=== PATIENT | female | born 1940 | race Two or more races ===

== ENCOUNTER 2024-11-02 06:55 | Emergency (ER) | payer MEDICARE, SELFPAY ==
[2024-11-02] VITALS (60 sets, daily range): BP systolic 81–150; BP diastolic 13–105; PULSE 36–87; RESP 13–29; TEMP 36; O2SAT 95–98
--- NOTE | 2024-11-02 07:00 | RT.EKG_ITS ---
APPROVED REPORT Exam: Resting ECG Reason for Exam: Weakness Patient Location: E HR:73 bpm ECG Measurements Heart Rate 73 AXIS FL 328 P 27 QRSd 100 QRS 28 QT 443 T 6 QTc 488 Conclusion Sinus rhythm...normal P axis, V-rate 60- 99 Supraventricular bigeminy...bigeminy string>4 w/ SV complexes Prolonged FL interval...FL >220, V-rate 50- 90 Low voltage, precordial leads...precordial leads <1.0mV Physician: lateral depressions without stemi
--- NOTE | 2024-11-02 07:00 | DI.RAD_ITS ---
Exam(s) XR PORTABLE CHEST AP EXAM: XR PORTABLE CHEST AP CLINICAL HISTORY: SOB TECHNIQUE: 2D digital imaging was performed. COMPARISON: No exams were available for comparison FINDINGS: LUNGS: The lung apices are partially obscured by the patient's chin. There is a small to moderate left pleural effusion. There are increased densities at the right lung base with a somewhat rounded configuration. This could represent an area atelectasis or consolidation. No definite over pulmonary edema. HEART: Markedly enlarged. There is pulmonary prominence. AORTA: Tortuous and calcified. Calcifications also noted in the right subclavian artery. There is a left subclavian artery stent. BONES: Unremarkable for age. Soft tissues: Unremarkable. IMPRESSION: Left pleural effusion. Right lower lobe consolidation versus atelectasis. The preliminary [facility] report was reviewed. DATA REPOSITORY: RADIATION DOSE DELIVERED:
--- NOTE | 2024-11-02 07:24 | W.ED.GENAD ---
Discharge Plan Disposition Patient Disposition: Transfer-Acute Inpatient Care Specific Acute Inpt Facility: Other Condition: Critical Discharge Details Clinical Impression: Severe sepsis, Pneumonia, Renal failure, Cellulitis of right foot, Non-ST elevation ME (NSTEMI) [facility] Provider: Srinivas Orellana Home Meds and New Rx's Prescriptions: No Action levothyroxine 125 mcg capsule 125 mcg PO DAILY amlodipine 10 mg tablet 10 mg PO DAILY hydralazine 10 mg tablet 20 mg PO BID omeprazole 20 mg capsule,delayed release(DR/EC) 20 mg PO DAILY sevelamer HCl [Renagel] 800 mg tablet 800 mg PO TID Rx Instructions: must administer with a meal/food magnesium 200 mg tablet 400 mg PO DAILY bumetanide 1 mg tablet 1 mg PO DAILY Discharge Data Discharge Date/Time-TO BE ENTERED AT DEPARTURE: 11/02/24 12:46 HPI General Date/Time Provider Initiated Documentation: 11/02/24 07:03. HPI Narrative: This is an 84-year-old female with past medical history of thyroid dysfunction, previous blood clots in the past, COPD, chronically on 3 L of oxygen, dialysis who no longer produces urine, hypertension, who just got here within the past 24 hours after a 4 to 5-day trip in the car coming up from [place]. She is a Sunday dialysis patient, her family is moving up here permanently to be closer to their daughter who is in college at the local [employer]. They left on Sunday, and that was the last day the patient had dialysis. Currently it is Sunday. On Sunday they noticed significant swelling in her right lower extremity, per family they went to a clinic where an ultrasound was performed and no blood clots were found. The leg was subsequently wrapped and during the trip developed continued swelling and blisters, blisters have now desquamated and have resulted in significant weeping and redness and pain. In addition to that family has not been able to get dialysis for the patient since her last episode on Sunday. Patient denies any significant complaints aside for generalized weakness. She denies chest pain or shortness of breath. She denies vomiting or diarrhea. She denies headache, fever or chills. She states that her right leg is tender, but the swelling has been going down. She states that she is a full code, and would like CPR and intubation if needed. She denies any other complaints at this time. She is not on blood thinners. She is not on current antibiotics. Related Data Home Medications ?Medication ?Instructions ?Recorded ?Confirmed amlodipine 10 mg tablet 10 mg PO DAILY 11/02/24 11/02/24 bumetanide 1 mg tablet 1 mg PO DAILY 11/02/24 11/02/24 hydralazine 10 mg tablet 20 mg PO BID 11/02/24 11/02/24 levothyroxine 125 mcg capsule 125 mcg PO DAILY 11/02/24 11/02/24 magnesium 200 mg tablet 400 mg PO DAILY 11/02/24 11/02/24 omeprazole 20 mg capsule,delayed 20 mg PO DAILY 11/02/24 11/02/24 release sevelamer HCl 800 mg tablet 800 mg PO TID 11/02/24 11/02/24 (Renagel) Allergies Allergy/AdvReac Type Severity Reaction Status Date / Time Sulfa (Sulfonamide Allergy Mild Nausea Verified 11/02/24 08:32 Antibiotics) General Stated Complaint: Dizzy/Sync MADDY: 3 Exam Narrative Exam Narrative: 1.Const: Well-nourished, Well-developed, appearing stated age 2.Eyes: PERRL, no conjunctival injection, and symmetrical lids. 3.ENT: Atraumatic external nose and ears. Moist MM. Neck: Symmetric, trachea midline, No thyromegaly. 4.CVS: +S1/S2, Peripheral pulses 2+ and equal in all extremities. Brisk capillary refill in all extremities. 5.RESP: Unlabored respiratory effort. Rhonchorous breath sounds, worse on the right than the left. 6.GI: Soft, Nontender/Nondistended, No hepatosplenomegaly. No guarding or rebound. 7.MSK: Normocephalic, right lower extremity demonstrates bilateral mild pitting edema +1, right lower extremity specifically has erythema throughout the foot extending alf up the arias. Tenderness in the foot and ankle, notably degenerative skin on the dorsal aspect of the foot, with significant skin breakdown, notable redness and oozing. Right great toe demonstrates altered coloration with violaceous coloring, small areas of dark purple coloring, notably delayed capillary refill. No pulses were able to be detected in the right foot with palpation, however Doppler ultrasound shows evidence of a very small amount of blood flow through the dorsalis pedis arterial vasculature. 8.Skin: See musculoskeletal 9.Neuro: terrazzo helper II-XII grossly intact. Sensation grossly intact, no focal neurologic deficits. 10.Psych: (AAO) x3. Appropriate mood and affect Course Vital Signs Vital signs: Vital Signs Temperature 36.0 C L 11/02/24 06:56 Pulse 68 11/02/24 06:56 Respiratory Rate 19 11/02/24 06:56 Blood Pressure 105/27 L 11/02/24 06:56 Pulse Oximetry 98 11/02/24 06:56 Temperature 36.0 C L 11/02/24 06:56 Pulse 68 11/02/24 06:56 Respiratory Rate 19 11/02/24 06:56 Blood Pressure 105/27 L 11/02/24 06:56 Blood Pressure Position Supine 11/02/24 06:56 Pulse Oximetry 98 11/02/24 06:56 Oxygen Delivery Method Room Air 11/02/24 06:56 Oxygen Flow Rate 0 11/02/24 06:56 Pain Level 8 11/02/24 06:56 Medical Decision Making This is an 84-year-old female with past medical history of thyroid dysfunction, previous blood clots in the past, COPD, chronically on 3 L of oxygen, dialysis who no longer produces urine, hypertension, who just got here within the past 24 hours after a 4 to 5-day trip in the car coming up from [place]. She is a Sunday dialysis patient, her family is moving up here permanently to be closer to their daughter who is in college at the local [employer]. They left on Sunday, and that was the last day the patient had dialysis. Currently it is Sunday. On Sunday they noticed significant swelling in her right lower extremity, per family they went to a clinic where an ultrasound was performed and no blood clots were found. The leg was subsequently wrapped and during the trip developed continued swelling and blisters, blisters have now desquamated and have resulted in significant weeping and redness and pain. In addition to that family has not been able to get dialysis for the patient since her last episode on Sunday. Patient denies any significant complaints aside for generalized weakness. She denies chest pain or shortness of breath. She denies vomiting or diarrhea. She denies headache, fever or chills. She states that her right leg is tender, but the swelling has been going down. She states that she is a full code, and would like CPR and intubation if needed. She denies any other complaints at this time. She is not on blood thinners. She is not on current antibiotics. Exam demonstrates rhonchorous breath sounds on the left, and infected cellulitic toe with notable skin breakdown and degeneration on the right foot. right lower extremity demonstrates bilateral mild pitting edema +1, right lower extremity specifically has erythema throughout the foot extending alf up the arias. Tenderness in the foot and ankle, notably degenerative skin on the dorsal aspect of the foot, with significant skin breakdown, notable redness and oozing. Right great toe demonstrates altered coloration with violaceous coloring, small areas of dark purple coloring, notably delayed capillary refill. No pulses were able to be detected in the right foot with palpation, however Doppler ultrasound shows evidence of a very small amount of blood flow through the dorsalis pedis arterial vasculature. Concern for pneumonia, cellulitis, dialysis need. EKG shows mild ST depression in the lateral leads, but no evidence of significant ST elevation or STEMI. Patient does not meet criterion for posterior ME. 9:45 AM Patient's laboratory workup has returned, she has a white count of 21, hemoglobin of 7, we have no prior for comparison. Moderate left shift, VBG demonstrates a pH of 7.2 with pCO2 of 53 and a low bicarb at 20 suggestive of mild commendation metabolic and respiratory acidosis with an associated elevated lactate of 2.2 signifying lactic acidosis. Electrolytes are stable, potassium is 5.0 at this time. Anion gap is 21, BUN 83, creatinine 11.7, the patient's transaminases are elevated at 206 and 135 for AST and ALT respectively. proBNP is greater than 3 35,000, initial troponin was 1700, repeat troponin is 1600. Troponin is clearly downtrending. No evidence of active STEMI. She continues to deny any chest pain whatsoever. Elevated troponin is associated with NSTEMI, likely demand ischemia. Thyroid function normal, procalcitonin elevated 2.15. Chest x-ray shows evidence of pneumonia and a pleural effusion, symptoms concerning for sepsis/severe sepsis with pneumonia, as well as the infected right toe and infected foot. Blood pressure remains borderline at 105/46, but not requiring pressors at this time. Vancomycin and Zosyn have been started. Patient clearly needs dialysis, further evaluation by cardiology, and management of her severe sepsis. I contacted [facility], [facility], [place], [facility], all of which has refused secondary to capacity issues at this time. We did contact [facility], and they have accepted the patient for an ER to ER transfer, accepting physician is Dr. Pinto. I have extensively reviewed the treatment plan with the patient. I have addressed all patient concerns at this time. I have also discussed the plan with the admitting physician and they agree with the current assessment and plan and have agreed to assume responsibility for the patient. All parties demonstrate verbal understanding and agreement with our assessment and plan at this time. The documentation in this chart was dictated using [email or web address] dictation software. Please excuse any dictation errors. At time of transfer the patient was reassessed and continued to demonstrate No signs of acute respiratory distress requiring intubation, or rapidly declining mental status. 11 AM Prior to transport to [place], the patient's blood pressure began to oscillate quite a bit. Heart rate would have bradycardic episodes dropping down to the 30s and 40s however she is still maintained notably appropriate mentation. Additionally blood pressure would drop down to the 80s systolic and then come back up shortly thereafter to the low 100s. Concern was for increased instability. We reach back out to [place], discussed the case with , of the medical ICU. He accepts the patient for transfer to the medical ICU. We discussed the case with the EMS staff, and because of the patient's increased instability, as well as the notably long transport time with a little ability to have hospital diversion if life-threatening etiology did occur, we elected to transition for the safety and best interest of the patient to [facility]. We contacted [facility], they accept the patient to transfer via their flight capabilities. I have extensively reviewed the treatment plan with the patient. I have addressed all patient concerns at this time. I have also discussed the plan with the admitting physician and they agree with the current assessment and plan and have agreed to assume responsibility for the patient. All parties demonstrate verbal understanding and agreement with our assessment and plan at this time. The documentation in this chart was dictated using [email or web address] dictation software. Please excuse any dictation errors. FINDINGS: Lungs: Consolidation in the bilateral lung bases. The consolidation in the right lung base suspicious for right middle lobe pneumonia, and left lung base may reflect left lower lobe infiltrate versus collapse. Pleural spaces: Suspected moderate left pleural effusion. Heart/Mediastinum: No cardiomegaly. Bones/joints: Unremarkable. IMPRESSION: 1. Bibasilar consolidations concerning for pneumonia. Recommend further evaluation with CT. 2. Suspected moderate left pleural effusion. Thank you for allowing us to participate in the care of your patient. Dictated and Authenticated by: Vika Castillo MD 11/02/2024 8:29 AM Eastern Time ([place] & [place]) Critical Care Time Critical Care Time Critical Care Time: Yes Total Critical Care Time: 90 Attestation: Upon my evaluation, this patient had a high probability of imminent or life-threatening deterioration, which required my direct attention, intervention, and personal management. I have personally provided 45 minutes of critical care time exclusive of time spent on separately billable procedures. Time includes review of laboratory data, radiology results, discussion with consultants, and monitoring for potential decompensation. Interventions were performed as documented. PFSH All Active Problems (Updated 11/02/24 @ 10:22 by Srinivas Orellana DO) Non-ST elevation ME (NSTEMI) (Acute) Cellulitis of right foot (Acute) Renal failure (Chronic) Pneumonia (Acute) Severe sepsis (Acute) Social History Smoking risk assessment performed?: No
[2024-11-02 08:07] LABS: BE (Venous) -8 mmol/L (-2-3); HCO3 (Venous) 20 mmol/L (23-28); O2 Sat (Venous) 46 %; TCO2 (Venous) 21 mmol/L (24-29); pCO2 (Venous) 53 mmHg (41-51); pO2 (Venous) 34 mmHg
[2024-11-02 08:09] LABS: HCT 25.3 % (36.0-46.0); HGB 7.7 g/dL (11.2-15.7); MCH 28.2 pg (27.0-33.0); MCHC 30.4 % (32.0-36.0); MCV 93 fL (80-95); RBC 2.73 10^6/uL (3.93-5.22); RDW 18.5 % (11.7-14.6); WBC 21.58 10^3/uL (4.4-10.8)
[2024-11-02 08:12] LABS: Lactate 2.2 mmol/L (<or=2.0)
[2024-11-02 08:16] LABS: ALT 135 U/L (14-59); AST 206 U/L (15-37); Albumin 2.3 g/dL (3.4-5.0); Alkaline Phosphatase 152 U/L (46-116); Anion Gap 21.7 mmol/L (3-11); Bilirubin, Total 0.5 mg/dL (0.2-1.0); CO2 18.3 mmol/L (21.0-32.0); Calcium 8.6 mg/dL (8.5-10.1); Chloride 102 mmol/L (98-107); Glucose 83 mg/dL (74-106); Sodium 142 mmol/L (136-145); Total Protein 6.5 g/dL (6.4-8.2)
[2024-11-02 08:18] LABS: BUN 83 mg/dL (7-18); CREATININE 11.7 mg/dL (0.55-1.02)
[2024-11-02 08:27] LABS: TSH (W/Ref FT4) 0.87 uIU/mL (0.36-3.74)
--- NOTE | 2024-11-02 08:30 | DI.[facility]_ITS ---
PROCEDURE INFORMATION: Exam: XR Chest Exam date and time: 11/02/2024 8:04 AM Age: 84 years old Clinical indication: Shortness of breath TECHNIQUE: Imaging protocol: Radiologic exam of the chest. Views: 1 view. COMPARISON: No relevant prior studies available. FINDINGS: Lungs: Consolidation in the bilateral lung bases. The consolidation in the right lung base suspicious for right middle lobe pneumonia, and left lung base may reflect left lower lobe infiltrate versus collapse. Pleural spaces: Suspected moderate left pleural effusion. Heart/Mediastinum: No cardiomegaly. Bones/joints: Unremarkable. IMPRESSION: 1. Bibasilar consolidations concerning for pneumonia. Recommend further evaluation with CT. 2. Suspected moderate left pleural effusion. Dictated and Authenticated by: Vika Castillo MD. Orderin Esteban Espino MD
[2024-11-02 08:46] LABS: Troponin I 1706 ng/L (<or=51)
[2024-11-02 08:48] LABS: INR 1.2 (0.9-1.1); PTT Activated 19.2 sec (20.6-30.2); Prothrombin Time 11.8 sec (9.1-11.1)
[2024-11-02 08:56] LABS: Absolute Lymphocyte Count 0.43 10^3/uL (1.2-3.4); Absolute Monocyte Count 1.08 10^3/uL (0.1-0.8); Absolute Neutrophil Count 18.99 10^3/uL (1.2-6.7); Anisocytosis 1+; Diff Comment Manual Differential; Myelocytes % 5
[2024-11-02 08:57] LABS: Polychromasia Present
[2024-11-02 09:00] LABS: Procalcitonin 2.15 ng/mL
[2024-11-02 09:08] LABS: NT-proBNP > 35000 pg/mL (<300)
[2024-11-02 09:37] LABS: Troponin I 1632 ng/L (<or=51)
[2024-11-02] MEDS: VANCOMYCIN/WATER (PEG) 1.25 GM/250 ML BAG IVPB (10:20)
[2024-11-02] MEDS: PIPERACILLIN/TAZO 3.375 GM in Normal Saline 50 ML IVPB (10:20)
[2024-11-02 11:39] LABS: Troponin I 1622 ng/L (<or=51)
[2024-11-02] MEDS: Norepinephrine in D5W 8 MG/250 ML BAG 9.375 MG IV (12:05)
== END 2024-11-02 12:46 | disposition short-term general hospital (02) ==
LOC: ER 10:45
PROVIDERS: Emergency Provider Student in an Organized Health Care Education/Training Program
DX: A41.9 Sepsis, unspecified organism (principal); L03.115 Cellulitis of right lower limb; N19 Unspecified kidney failure; J18.9 Pneumonia, unspecified organism; I21.4 Non-ST elevation (NSTEMI) myocardial infarction; E03.9 Hypothyroidism, unspecified
CPT/HCPCS: 36415; 99291; 76882; 80053; 82805; 84145; 87040; 93005; 96365; 96366; 96367; 71045; 83605; 83735; 83880; 84443; 84484; 85025; 85610; 85730; 93010; J2543; J3372